=== PATIENT | female | born 1950 | race Caucasian/White ===

== ENCOUNTER → 2018-01-29 | Outpatient (CLI) | payer MEDICARE ==
[~2018-01-29] MED LIST: ASPIR-LOW81 MG; ASPIR-TRIN325 MG PO; KLOR-CON M2020 ME1 PO; LOPRESSOR25 MG PO; METOPROLOL TART50 M1 PO; NKHM; TORSEMIDE20 MG PO; XARE20MG PO
== END | disposition home or self-care (01) ==
LOC: RAD 18:40
DX: J90 Pleural effusion, not elsewhere classified (principal); K63.89 Other specified diseases of intestine

== ENCOUNTER 2018-01-30 08:54 | Inpatient (IN) | payer MEDICARE ==
[2018-01-30] VITALS (11 sets, daily range): BP systolic 118–159; BP diastolic 70–98
[~2018-01-30] VITALS: Ht 170.1 cm; Wt 80.3 kg
--- NOTE | ~2018-01-30 | CON ---
[place], [place] REPORT OF CONSULTATION NAME: PHAM THOMAS UNIT #: [id number] ROOM: 404 DOCTOR: REBEKAH ROA MD BIRTHDATE: [birth year] DOS: 01/30/2018 GASTROENDOSCOPIC REPORT HISTORY OF PRESENT ILLNESS: This is a 67-year-old patient who has presented with a chief complaint of bloated, gassy and was suspected to initially have also pneumonia; however, this was verified and there is no pneumonia on board. X-rays of the abdomen and CT scan were done with suggestion of volvulus of sigmoid colon with history of previous volvulus of colon was of concern. I have been asked for assessment for decompression colonoscopically. Chest x-ray was obtained. Even on chest x-ray, there is markedly distended colon, highly concerning colonic obstruction and sigmoid volvulus in the past, left pleural effusion, bibasilar subsegmental atelectasis noticed. CBC: White blood cell was 6, H and H of 11 and 34, platelet 220. Comprehensive metabolic panel with BUN and creatinine within normal limit. Potassium of 2.4 was addressed with 20 mEq of KCl IV and 40 mEq of KCl p.o. earlier today. Liver function tests normal. CT scan of the abdomen again in detail reassessed compatible with the previous readings on x-ray. PAST MEDICAL HISTORY: Peripheral edema, hypertension. SOCIAL HISTORY: Nonsmoker, nonalcohol consumer. FAMILY HISTORY: Noncontributory. ALLERGIES: To no medications. MEDICATIONS AT HOME: Metoprolol, aspirin and vitamin D. REVIEW OF SYSTEMS: HEENT: Denies double vision, blurred vision. RESPIRATORY: Denies acute shortness of breath. CARDIOVASCULAR: Denies acute chest pain. DIGESTIVE SYSTEM: Bloated, gassy. No hematemesis, no hematochezia. PHYSICAL EXAMINATION: GENERAL: Nontoxic patient, comfortable. HEENT: Head: Normocephalic, nontraumatic. Mouth and buccal mucosa benign. Edentulous. NECK: Supple, no thyromegaly, no cervical lymphadenopathy. CHEST: Symmetric anatomy. No wheezes. Rhonchi anteroposteriorly in the upper lung was noted. Few crackles at the base. HEART: Normal sinus rhythm, no gallop, no murmur. ABDOMEN: Soft. No hepato-organomegaly. Bloated, essentially large, obese. Bowel sounds are low. EXTREMITIES: There is 2+ edema bilaterally and no cyanosis. NEUROLOGIC: Alert, oriented to time, place, person. Sensory and motor intact. Cranial nerves 2-12 intact. IMPRESSION: Volvulus of sigmoid colon, distention of colon as a result, [place], [place] REPORT OF CONSULTATION NAME: PHAM THOMAS UNIT #: [id number] ROOM: 404 DOCTOR: REBEKAH ROA MD BIRTHDATE: [birth year] hypokalemia, status post substitution, old history of atrial fibrillation, systemic hypertension. PLAN AND DISCUSSION: We are going to organize a colonoscopy and volvulus reversal today if possible and clinical reassessment. Lower extremity DVTs assessment has been done. No evidence of DVT in bilateral lower extremities. Thank you very much indeed. REBEKAH ROA MD CM:CONSTR:REPORT OF CONSULTATION 1739 01/31/18 0326 interface
--- NOTE | ~2018-01-30 | PR ---
[place], [place] PROGRESS NOTE [id number] UNIT #: [id number] ROOM: 404 DOCTOR: ANH RAMOS MD BIRTHDATE: [birth year] DOS: 02/01/2018 SUBJECTIVE: The patient was seen at her bedside today, 02/01/2018, for followup of her paroxysmal atrial fibrillation. She is a 67-year-old woman who presented to the hospital on 01/30/2018 with abdominal discomfort. Her CAT scan of the abdomen suggested a volvulus. She did undergo colonoscopic decompression and now feels better. Her diet is being advanced. On admission, she was noted to be in atrial fibrillation with a rapid ventricular response. She has had paroxysmal atrial fibrillation in the past, but was not anticoagulated previously. Since she has been hospitalized, we have started her on metoprolol for rate control and have her on a heparin drip. Once the decision has been made whether or not she will require surgery, we can change her to a direct oral anticoagulant. PHYSICAL EXAMINATION: GENERAL: She is well-nourished white female who is awake, alert and oriented. She is not in any distress. VITAL SIGNS: Pulse is 88 and irregularly irregular, blood pressure is 129/77. She is afebrile. NECK: Supple. She has no jugular distention. Carotids are full. LUNGS: Respirations are unlabored. Her chest is clear. HEART: Has an irregularly irregular rhythm. Heart rate varies from the high 80s to the low 100s. She has no murmurs, rubs or gallops. ABDOMEN: Soft and normally active without masses, organomegaly or bruits. EXTREMITIES: Showed 1+ edema bilaterally. She was given diuretic overnight and is slightly in negative fluid balance compared to yesterday. IMPRESSION: 1. Colonic obstruction due to possible volvulus, improving since the patient did undergo a colonoscopic decompression. 2. Paroxysmal atrial fibrillation. 3. Ankle edema, most likely due to diastolic dysfunction from atrial fibrillation. 4. Essential hypertension. PLAN: I will diurese the patient further today. Hopefully, as we control her heart rate, her diastolic dysfunction will improve and she will not require long-term diuretics. Once the decision has been made regarding her surgical future, we can switch her from heparin to a direct oral anticoagulant. We will continue to follow her with her other physicians and I thank the hospitalist doctors for asking our advice regarding her care. [place], [place] PROGRESS NOTE NAME: PHAM THOMAS UNIT #: [id number] ROOM: 404 DOCTOR: ANH RAMOS MD BIRTHDATE: [birth year] ANH RAMOS MD CM:PNTRANS [id number] ANH RAMOS MD 02/01/182010 interface
--- NOTE | ~2018-01-30 | PR ---
[place], [place] PROGRESS NOTE NAME: PHAM THOMAS UNIT #: [id number] ROOM: 404 DOCTOR: CRISPIN CARREONREBEKAH BIRTHDATE: [birth year] DOS: 02/01/2018 SUBJECTIVE: The patient has presented with extreme distention of the bowel, large bowel and small bowel, with suspected volvulus of sigmoid colon. She underwent colonoscopic evaluation and undoing of the volvulus. She has large volume of stool in the colon and extreme dilation of colon. She was hypokalemic and 40 mEq of KCl today has been given p.o.; however, she is still hypokalemic. I am going to give her another 20 mEq this evening. She should be kept above 4 with her potassium supplementation as well as keeping her magnesium at normal and phosphorus level at the normal level. She has been able to consume solid food today without any adverse effect of nausea, vomiting, abdominal pain, or emesis. PAST MEDICAL HISTORY: Hypertension and peripheral edema. SOCIAL HISTORY: Nonsmoker, nonalcohol consumer. REVIEW OF SYSTEMS: Today: HEENT: Denies double vision, blurred vision. RESPIRATORY: Denies shortness of breath. CARDIOVASCULAR: Denies chest pain. DIGESTIVE SYSTEM: Able to eat solid food and having a bowel movement. PHYSICAL EXAMINATION: VITAL SIGNS: Stable. HEENT: Head normocephalic, nontraumatic. Mouth and buccal mucosa benign. NECK: Supple, no thyromegaly, no cervical lymphadenopathy. CHEST: Symmetric anatomy, equal expansion. HEART: Appears to be irregular, suspected for atrial fibrillation. ABDOMEN: Soft, not distended, not bloated. Bowel sounds present in all quadrants. No rebound tenderness. EXTREMITIES: 1+ edema is still present. NEUROLOGIC: Alert, oriented to time, place, person. IMPRESSION: Volvulus of the colon, status post colonoscopy decompression and volvulus rotation, hypokalemia that is going to be addressed, and retained stool. PLAN AND DISCUSSION: We are going to give her 2 doses of MiraLax tonight to ensure a empty colon tomorrow. I encouraged the patient to ambulate around. Solid food would be the continuation of the diet and otherwise as dictated in consultation report. Labs reviewed and records reviewed. [place], [place] PROGRESS NOTE NAME: PHAM THOMAS UNIT #: [id number] ROOM: 404 DOCTOR: CRISPIN CARREON,REBEKAH BIRTHDATE: [birth year] REBEKAH ROA MD CM:PNNALLELY [phone] REBEKAH ROA MD 02/02/18127 interface
--- NOTE | ~2018-01-30 | PR ---
[place], [place] PROGRESS NOTE NAME: PHAM THOMAS UNIT #: [id number] ROOM: 404 DOCTOR: ANH RAMOS MD BIRTHDATE: [birth year] DOS: 01/31/2018 SUBJECTIVE: The patient was seen at her bedside today, 01/31/2018, with multiple family members in attendance. Yesterday afternoon, she did undergo a colonoscopy with decompression of a possible volvulus. She feels better today and states that she is breathing better. Her abdomen is still distended, however. She remains in atrial fibrillation and occasionally does have a rapid ventricular response. We are adjusting her metoprolol dose to see if we cannot control that with oral medications. In addition, she is on a heparin drip for stroke prophylaxis. Once we are sure that no surgical options are being explored. We will switch her from the heparin to an oral anticoagulant, preferably one of the direct oral anticoagulants. PHYSICAL EXAMINATION: VITAL SIGNS: Her pulse is about 110 and irregularly irregular, blood pressure is 132/95. She is afebrile. NECK: Supple. She has no jugular distention. Carotids are full. LUNGS: Respirations are unlabored. Her chest is clear. HEART: Has an irregularly irregular rapid rhythm without murmurs or gallops. ABDOMEN: Distended, but soft and normally active. EXTREMITIES: Show 1+ edema bilaterally. IMPRESSION: 1. Colonic obstruction, improving. 2. Paroxysmal atrial fibrillation. 3. Ankle edema, most likely due to diastolic dysfunction from her atrial fibrillation. 4. Essential hypertension. PLAN: We have increased her metoprolol. I will give her a few doses of furosemide intravenously to try to improve her fluid balance. We will continue to observe her laboratory studies and vital signs as we do so. Once we are sure that she has not going to undergo been surgery for her colonic obstruction, we will switch her to an oral anticoagulant. I thank the hospitalist physicians for asking our advice regarding her care. [place], [place] PROGRESS NOTE NAME: PHAM THOMAS UNIT #: [id number] ROOM: 404 DOCTOR: ANH RAMOS MD BIRTHDATE: [birth year] ANH RAMOS MD CM:PNTRANS [id number] ANH RAMOS MD 01/31/18 1838 interface
--- NOTE | ~2018-01-30 | WRIGHTHP ---
[place], [place] PATIENT HISTORY AND PHYSICAL EXAM [id number] UNIT #: [id number] ROOM: 404 DOCTOR: ANH RAMOS MD BIRTHDATE: [birth year] DOS: 01/30/2018 CHIEF COMPLAINT: Dyspnea, atrial fibrillation, abnormal echocardiogram. The patient is being admitted for transesophageal echocardiogram as outpatient. HISTORY OF PRESENT ILLNESS: The patient is a 67-year-old woman who initially presented to the emergency department on 01/30/2018 with dyspnea. She was seen in her primary physician's office and was felt to have possible pneumonia; however, she did have a distended abdomen and a CT of the abdomen and pelvis showed findings consistent with a sigmoid volvulus. The patient had had a history of this several years previously. An electrocardiogram was obtained in the emergency room, which showed atrial fibrillation. Review of her records showed that she had been previously hospitalized in June 2012 for new onset of atrial fibrillation and volvulus, which was treated at that time with a decompressive colonoscopy. An echo showed moderate aortic insufficiency with mild right ventricular dilatation and dysfunction, moderate to severe mitral insufficiency, moderate tricuspid insufficiency and biatrial enlargement. She converted to sinus rhythm prior to that discharge and was sent home on aspirin, metoprolol, but as far as I can tell, she was not followed afterwards. She came into the hospital on this occasion again with atrial fibrillation and a volvulus. She did undergo a decompressive colonoscopy and improved, but her abdomen remained distended. She remained in atrial fibrillation with a controlled ventricular response. She was anticoagulated and an echocardiogram was done on 02/02/2018. Surprisingly, it was significantly abnormal. It showed normal left ventricular size with abnormal septal motion consistent with right ventricular overload. Overall, left ventricular systolic function was normal with ejection fraction about 55%, but there was Doppler evidence for stage 3 diastolic dysfunction. The right ventricle was moderately dilated and globally hypokinetic, although TAPSE was normal at 18 mm. The left atrium was moderately enlarged. The interatrial septum was not well visualized. The right atrium was severely enlarged. Aortic valve was sclerotic, but opened well. There was trace aortic insufficiency and no significant valvular stenosis. The mitral leaflets were thickened with normal excursion. There was moderate mitral insufficiency, but no mitral valve stenosis. The tricuspid valve appeared normal with moderate to severe tricuspid insufficiency, but no apparent pulmonary hypertension. The etiology of the patient's right ventricular failure is not clear and therefore further assessment with a transesophageal echocardiogram is being considered. PAST MEDICAL HISTORY: Includes: 1. Hypertension. 2. Paroxysmal atrial fibrillation. 3. Sigmoid volvulus in 2011, which required colonoscopic decompression. The patient did not have surgery. 4. Abnormal echocardiogram in 2011 showing moderate mitral insufficiency, moderate aortic insufficiency, mild right ventricular dilation with dysfunction, moderate tricuspid insufficiency and biatrial enlargement. [place], [place] PATIENT HISTORY AND PHYSICAL EXAM NAME: PHAM THOMAS UNIT #: [id number] ROOM: [facility] DOCTOR: ANH RAMOS MD BIRTHDATE: [birth year] 5. Recurrent colonic volvulus with obstruction 01/30/2018 treated with decompressive colonoscopy. 6. Echocardiogram 02/02/2018, normal left ventricular size with ejection fraction 55%, moderate concentric left ventricular hypertrophy, stage 3 diastolic relaxation abnormalities, moderate right ventricular enlargement with mild impairment of right ventricular function, moderate left atrial enlargement with severe right atrial enlargement, aortic sclerosis without stenosis and with trivial aortic insufficiency, thickened mitral leaflets with normal excursion, moderate mitral insufficiency. No obvious mitral stenosis, [id number] tricuspid insufficiency with normal right ventricular systolic pressures. MEDICATIONS: Include Xarelto 20 mg daily, metoprolol tartrate 50 mg twice a day, potassium chloride 20 mEq daily, torsemide 20 mg 2 tablets daily. ALLERGIES: The patient has no history of drug allergies. REVIEW OF SYSTEMS: The patient denies diplopia or loss of vision. She denies lightheadedness or syncope. She denies palpitations, orthopnea or PND. She does have dyspnea with exertion. She denies any chest pain. She denies hemoptysis or hematemesis. She denies nausea or vomiting. She does have chronic abdominal distention. She does have mild peripheral edema. She denies any skin rashes. She denies heat or cold intolerance. She denies polyuria or polydipsia. She denies bleeding from her stools or urine. The remainder of the review of systems is negative except as noted above. SOCIAL HISTORY: The patient does not consume illegal drugs or smoke. PHYSICAL EXAMINATION: GENERAL: The patient is a well-nourished white female, awake, alert and oriented. VITAL SIGNS: Pulse is 90 and irregularly irregular. Blood pressure is 112/70. She is afebrile. HEENT: Normocephalic and atraumatic. Extraocular muscles are intact. Sclerae are clear. Pupils are equal, round and react to light. The oral mucosa is moist. Tongue is midline. NECK: Supple. She has no jugular distention. She does have hepatojugular reflux. Carotids are full. LUNGS: Respirations are unlabored. Her chest is clear. She has decreased breath sounds at the bases. CARDIOVASCULAR: Heart has an irregularly irregular rhythm. Heart rate varies from 80s to 100s. No murmurs or gallops are heard. ABDOMEN: Distended without masses, organomegaly or bruits. EXTREMITIES: Showed trace edema bilaterally. IMPRESSIONS: 1. Atrial fibrillation, which appears to be permanent at this time. 2. Abnormal echocardiogram suggesting right heart failure and possible valvular heart disease. 3. Recurrent colonic volvulus with obstruction. 4. Chronic diastolic heart failure. [place], [place] PATIENT HISTORY AND PHYSICAL EXAM NAME: PHAM THOMAS UNIT #: [id number] ROOM: [facility] DOCTOR: ANH RAMOS MD BIRTHDATE: [birth year] PLAN: The patient will be brought in as an outpatient for transesophageal echocardiography. Further recommendations will depend upon the results of her anatomic assessment. She may require referral for valve repair or replacement. The patient was told of the risks of transesophageal echocardiography including anesthesia reactions, sore throat, gagging, vomiting, bleeding, etc. Despite these risks, she agrees to proceed. ANH RAMOS MD CM:HISPHYS:PATIENT HISTORY AND PHYSICAL EXAMINATION 1213 1236 ANH RAMOS MD 02/05/18 1235 interface
--- NOTE | ~2018-01-30 | O ---
[place], [place] OPERATIVE NOTE NAME: PHAM THOMAS UNIT #: [id number] ROOM: 404 DOCTOR: REBEKAH ROA MD BIRTHDATE: [birth year] DOS: 01/30/2018 INDICATIONS: The patient is a 67-year-old patient who has presented with chief complaint of abdominal pain, CT scan of the abdomen, volvulus of the colon, distention of the colon. The patient was brought to the operating room for definitive evaluation and decompression. PROCEDURE: Today's procedure part of investigation is colonoscopy. PREMEDICATION: Propofol. SCOPE: Olympus forward-viewing colonoscope 10L video. REPORT: After putting the patient in left lateral position and application of lubricant to rectal pouch, the scope was introduced and under careful observation passed through the columns of the stools present in the colon above volvulus and distention of the colon above the volvulus was noticed. Decompression was undertaken multiple times. This maneuver was redone to assure a straightening of the left colon and reduction of the volvulus in sigmoid colon. The patient was extubated after air was suctioned out. The patient tolerated the procedure well. IMPRESSION: Volvulus sigmoid colon, colonic decompression. PLAN AND DISCUSSION: Understanding this patient has no colonic prep, the procedure had to be done carefully and postoperatively abdomen was examined much softer and there was no distention and we have to await tomorrow's reevaluation. She is going to be given 10 mg of Reglan to have continuation of motility in the colon to overcome possibility of ____. Also, potassium has been supplemented through IV and p.o. and we will observe overnight. Tomorrow KUB of the abdomen and clinical reassessment. The patient is going to be encouraged to ambulate. REBEKAH ROA MD CM:OPRECORD:OPERATIVE NOTE 09 30 REBEKAH ROA MD 01/30/181930 interface
[~2018-01-30 08:54] MED LIST changes: -KLOR-CON M2020 ME1 PO; -METOPROLOL TART50 M1 PO; -TORSEMIDE20 MG PO; -XARE20MG PO
[2018-01-30 10:08] LABS: BASO # 0.1 10*3/uL (0.0-0.1); BASO % 0.8 % (0.0-1.0); EOS # 0.1 10*3/uL (0.0-0.4); EOS % 0.8 % (1.0-4.0); LYMPH # 1.5 10*3/uL (1.3-4.4); LYMPH % 23.5 % (27.0-41.0); MEAN CELL VOLUME 83.1 fl (81.0-99.0); MEAN CORPUSCULAR HGB 26.9 pg (27.0-31.0); MEAN CORPUSCULAR HGB CONC 32.4 g/dl (33.0-37.0); MEAN PLATELET VOLUME 10.1 fl (9.6-12.3); MONO # 0.5 10*3/uL (0.1-1.0); MONO % 8.2 % (3.0-9.0); NEUT # 4.2 10*3/uL (2.3-7.9); NEUT % 66.4 % (47.0-73.0); PLATELET COUNT AUTOMATED 220 10*3/uL (130-400); RED BLOOD COUNT 4.09 10*6/uL (4.10-5.10); WHITE BLOOD COUNT 6.3 10*3/uL (4.8-10.8)
[2018-01-30 10:22] LABS: ALBUMIN 2.9 gm/dl (3.1-4.5); ALKALINE PHOSPHATASE 92 U/L (45-117); BUN 9 mg/dl (7-24); CHLORIDE 107 mmol/L (98-107); CREATININE 0.59 mg/dL (0.55-1.02); SGOT/AST 22 IU/L (3-35); SGPT/ALT 14 U/L (12-78); SODIUM 143 mmol/L (136-145); TOTAL PROTEIN 7.7 gm/dL (6.4-8.2)
[2018-01-30 10:26] LABS: POTASSIUM 2.4 mmol/L (3.5-5.1)
[2018-01-30 20:48] LABS: BUN 8 mg/dl (7-24); CHLORIDE 107 mmol/L (98-107); CREATININE 0.55 mg/dL (0.55-1.02); POTASSIUM 2.5 mmol/L (3.5-5.1); SODIUM 143 mmol/L (136-145)
[2018-01-31] VITALS: BP 139/85
[2018-01-31 06:31] LABS: BASO % 0.9 % (0.0-1.0); EOS # 0.1 10*3/uL (0.0-0.4); EOS % 1.1 % (1.0-4.0); HEMATOCRIT 31.7 % (37.0-47.0); HEMOGLOBIN 10.1 g/dl (12.0-16.0); LYMPH # 1.7 10*3/uL (1.3-4.4); LYMPH % 37.7 % (27.0-41.0); MEAN CELL VOLUME 83.9 fl (81.0-99.0); MEAN CORPUSCULAR HGB 26.7 pg (27.0-31.0); MEAN CORPUSCULAR HGB CONC 31.9 g/dl (33.0-37.0); MONO # 0.5 10*3/uL (0.1-1.0); MONO % 10.4 % (3.0-9.0); NEUT # 2.3 10*3/uL (2.3-7.9); NEUT % 49.7 % (47.0-73.0); PLATELET COUNT AUTOMATED 186 10*3/uL (130-400); RED BLOOD COUNT 3.78 10*6/uL (4.10-5.10); RED CELL DISTRI WIDTH 18.4 % (0-14.5); WHITE BLOOD COUNT 4.5 10*3/uL (4.8-10.8)
[2018-01-31 06:43] LABS: INTERNATIONAL NORM RATIO 1.3 (2.0-3.5)
[2018-01-31 06:46] LABS: ALBUMIN 2.5 gm/dl (3.1-4.5); ALKALINE PHOSPHATASE 79 U/L (45-117); BUN 7 mg/dl (7-24); CHLORIDE 108 mmol/L (98-107); CHOLESTEROL 121 mg/dL (<200); CREATININE 0.48 mg/dL (0.55-1.02); FREE T4 1.22 ng/dl (0.76-1.46); HDL CHOLESTEROL 19 mg/dl (40-60); LDL CHOLESTEROL 85 mg/dL (9-159); PHOSPHOROUS 3.7 mg/dL (2.5-4.9); POTASSIUM 2.9 mmol/L (3.5-5.1); SGOT/AST 20 IU/L (3-35); SGPT/ALT 11 U/L (12-78); SODIUM 143 mmol/L (136-145); TOTAL PROTEIN 6.6 gm/dL (6.4-8.2); TRIGLYCERIDES 87 mg/dl (<150); VLDL CHOLESTEROL 17 mg/dL (6-40)
[2018-01-31 08:00] VITALS: BP 140/82
[2018-01-31 08:09] LABS: VITAMIN D, 25-HYDROXY 79.2 ng/mL (30-100)
[2018-01-31 12:00] VITALS: BP 138/98
[2018-01-31 16:00] VITALS: BP 132/95
[2018-01-31 20:00] VITALS: BP 127/91
[2018-02-01] VITALS: BP 144/92
[2018-02-01 06:19] LABS: BASO # 0.1 10*3/uL (0.0-0.1); BASO % 0.8 % (0.0-1.0); EOS # 0.1 10*3/uL (0.0-0.4); EOS % 0.9 % (1.0-4.0); HEMATOCRIT 36.1 % (37.0-47.0); HEMOGLOBIN 11.5 g/dl (12.0-16.0); LYMPH # 3.2 10*3/uL (1.3-4.4); LYMPH % 48.2 % (27.0-41.0); MEAN CELL VOLUME 84.5 fl (81.0-99.0); MEAN CORPUSCULAR HGB 26.9 pg (27.0-31.0); MEAN CORPUSCULAR HGB CONC 31.9 g/dl (33.0-37.0); MEAN PLATELET VOLUME 10.1 fl (9.6-12.3); MONO # 0.6 10*3/uL (0.1-1.0); MONO % 9.1 % (3.0-9.0); NEUT # 2.7 10*3/uL (2.3-7.9); NEUT % 40.7 % (47.0-73.0); PLATELET COUNT AUTOMATED 234 10*3/uL (130-400); RED BLOOD COUNT 4.27 10*6/uL (4.10-5.10); RED CELL DISTRI WIDTH 18.8 % (0-14.5); WHITE BLOOD COUNT 6.6 10*3/uL (4.8-10.8)
[2018-02-01 06:31] LABS: BUN 6 mg/dl (7-24); CHLORIDE 107 mmol/L (98-107); CREATININE 0.64 mg/dL (0.55-1.02); PHOSPHOROUS 3.5 mg/dL (2.5-4.9); SODIUM 142 mmol/L (136-145)
[2018-02-01 08:00] VITALS: BP 136/92
[2018-02-01 12:00] VITALS: BP 129/77
[2018-02-01 16:00] VITALS: BP 119/70
[2018-02-01 20:00] VITALS: BP 127/84
[2018-02-02] VITALS: BP 135/86
[2018-02-02 06:52] LABS: BASO # 0.1 10*3/uL (0.0-0.1); BASO % 0.8 % (0.0-1.0); EOS # 0.1 10*3/uL (0.0-0.4); EOS % 0.8 % (1.0-4.0); HEMATOCRIT 35.1 % (37.0-47.0); LYMPH # 2.6 10*3/uL (1.3-4.4); LYMPH % 44.3 % (27.0-41.0); MEAN CELL VOLUME 84.6 fl (81.0-99.0); MEAN CORPUSCULAR HGB 26.5 pg (27.0-31.0); MEAN CORPUSCULAR HGB CONC 31.3 g/dl (33.0-37.0); MONO # 0.6 10*3/uL (0.1-1.0); MONO % 9.5 % (3.0-9.0); NEUT # 2.6 10*3/uL (2.3-7.9); NEUT % 44.4 % (47.0-73.0); PLATELET COUNT AUTOMATED 237 10*3/uL (130-400); RED BLOOD COUNT 4.15 10*6/uL (4.10-5.10); RED CELL DISTRI WIDTH 18.9 % (0-14.5); WHITE BLOOD COUNT 5.9 10*3/uL (4.8-10.8)
[2018-02-02 07:17] LABS: BUN 8 mg/dl (7-24); CHLORIDE 104 mmol/L (98-107); CREATININE 0.56 mg/dL (0.55-1.02); PHOSPHOROUS 3.5 mg/dL (2.5-4.9); POTASSIUM 3.1 mmol/L (3.5-5.1); SODIUM 143 mmol/L (136-145)
[2018-02-02 08:00] VITALS: BP 115/75
[2018-02-02 12:00] VITALS: BP 113/75
[2018-02-02] MEDS ORDERED: KLOR-CON M2020 ME1 PO (14:06)
[2018-02-02] MEDS ORDERED: METOPROLOL TART50 M1 PO (14:06)
[2018-02-02] MEDS ORDERED: TORSEMIDE20 MG PO (14:06)
[2018-02-02] MEDS ORDERED: XARE20MG PO (14:06)
== END 2018-02-02 16:30 | disposition home or self-care (01) | DRG 345 ==
LOC: ED 08:54 → EDHOLD 14:47 → 4E 14:47
PROVIDERS: Family Medicine; Internal Medicine Nephrology; Student in an Organized Health Care Education/Training Program
PROC: 0D9N8ZZ Drainage of Sigmoid Colon, Via Natural or Artificial Opening Endoscopic (ICD-10-PCS; principal; 2018-01-30)
DX: K56.2 Volvulus (principal); E44.0 Moderate protein-calorie malnutrition; I48.0 Paroxysmal atrial fibrillation; R65.10 Systemic inflammatory response syndrome (SIRS) of non-infectious origin without acute organ dysfunction; I08.1 Rheumatic disorders of both mitral and tricuspid valves; D64.9 Anemia, unspecified; D72.810 Lymphocytopenia; E66.3 Overweight; E87.6 Hypokalemia; I10 Essential (primary) hypertension; K63.89 Other specified diseases of intestine; Z79.82 Long term (current) use of aspirin; Z79.899 Other long term (current) drug therapy; Z80.8 Family history of malignant neoplasm of other organs or systems; Z68.27 Body mass index [BMI] 27.0-27.9, adult

== ENCOUNTER → 2018-02-06 | Day surgery (SDC) | payer MEDICARE ==
[~2018-02-06] VITALS: Ht 170.1 cm
[~2018-02-06] MED LIST changes: +KLOR-CON M2020 ME1 PO; +METOPROLOL TART50 M1 PO; +TORSEMIDE20 MG PO; +XARE20MG PO
--- NOTE | ~2018-02-06 | O ---
[place], [place] OPERATIVE NOTE NAME: PHAM THOMAS UNIT #: [id number] ROOM: DOCTOR: ANH RAMOS MD BIRTHDATE: [birth year] DOS: 02/06/2018 TRANSESOPHAGEAL ECHOCARDIOGRAM INDICATIONS: Permanent atrial fibrillation, right heart failure. PROCEDURE IN DETAIL: Informed consent was obtained from the patient. She was brought to the operating suite in the fasting state. She was anesthetized by anesthesia staff and appropriate monitoring was performed. The transesophageal transducer was introduced through her mouth to the level of her stomach without difficulty. Imaging was obtained in the standard fashion. Echocardiographic contrast was obtained by 10 mL bolus injection of agitated saline through a peripheral vein. When all imaging was completed, the transducer was removed. The patient had stable vital signs throughout and no immediate complications were noted. FINDINGS: Please see the formal echocardiographic report done at the echo workstation. Salient findings include: 1. Marked biatrial enlargement. 2. Right ventricular enlargement. 3. Sddggugl-ad-qgkyuz tricuspid insufficiency with normal right ventricular systolic pressures. 4. Small patent foramen ovale with bidirectional shunting documented by Doppler and saline echo contrast. 5. Moderate mitral insufficiency, which is central narrow jet. This did not reflux into the pulmonary veins. 6. Slight thickening of the mitral leaflets without stenosis. 7. Aortic sclerosis without stenosis and with trivial aortic insufficiency. The patient tolerated the procedure well. We will continue to treat her as per cardiomyopathy with rate control and guideline-directed medical therapy. For now, we will increase her metoprolol from 50 mg b.i.d. to 75 mg b.i.d. She will continue Xarelto 20 mg per day, potassium 20 mEq per day and torsemide 40 mg per day. [place], [place] OPERATIVE NOTE NAME: PHAM THOMAS UNIT #: [id number] ROOM: DOCTOR: ANH RAMOS MD BIRTHDATE: [birth year] ANH RAMOS MD CM:OPRECORD:OPERATIVE NOTE 1350 1548 ANH RAMOS MD 02/06/18 0776 interface
[2018-02-06 12:20] VITALS: BP 154/94
[2018-02-06 13:10] VITALS: BP 80/44
[2018-02-06 13:25] VITALS: BP 97/53
[2018-02-06 13:40] VITALS: BP 109/66
== END | disposition home or self-care (01) ==
LOC: SDC 02-04 08:00
DX: I48.2 Chronic atrial fibrillation (principal); I08.3 Combined rheumatic disorders of mitral, aortic and tricuspid valves; I11.0 Hypertensive heart disease with heart failure; I25.2 Old myocardial infarction; I50.33 Acute on chronic diastolic (congestive) heart failure; Z87.19 Personal history of other diseases of the digestive system; Z98.890 Other specified postprocedural states; Z79.899 Other long term (current) drug therapy; Z85.41 Personal history of malignant neoplasm of cervix uteri

== ENCOUNTER → 2018-03-13 | Outpatient (CLI) | payer MEDICARE | END | disposition home or self-care (01) | LOC: US 03-12 16:00 | DX: R94.6 Abnormal results of thyroid function studies (principal); R94.5 Abnormal results of liver function studies ==

== ENCOUNTER → 2018-08-05 | Outpatient (CLI) | payer MEDICARE ==
[2018-08-05 10:57] LABS: BUN 20 mg/dl (7-24); CHLORIDE 106 mmol/L (98-107); POTASSIUM 3.7 mmol/L (3.5-5.1); SODIUM 139 mmol/L (136-145)
[2018-08-05 11:02] LABS: FREE T4 1.19 ng/dl (0.76-1.46)
== END | disposition home or self-care (01) ==
LOC: LAB 10:05
PROVIDERS: Internal Medicine
DX: E03.9 Hypothyroidism, unspecified (principal); E55.9 Vitamin D deficiency, unspecified; E87.6 Hypokalemia

== ENCOUNTER → 2018-10-28 | Outpatient (CLI) | payer MEDICARE ==
[2018-10-28 09:34] LABS: BUN 20 mg/dl (7-24); CHLORIDE 104 mmol/L (98-107); CREATININE 0.95 mg/dL (0.55-1.02); POTASSIUM 3.5 mmol/L (3.5-5.1); SODIUM 140 mmol/L (136-145)
== END | disposition home or self-care (01) ==
LOC: LAB 08:35
PROVIDERS: Internal Medicine
DX: E03.9 Hypothyroidism, unspecified (principal); E55.9 Vitamin D deficiency, unspecified; E87.6 Hypokalemia

== ENCOUNTER → 2019-02-24 | Outpatient (CLI) | payer MEDICARE ==
[2019-02-24 09:15] LABS: CHLORIDE 105 mmol/L (98-107); POTASSIUM 3.5 mmol/L (3.5-5.1); SODIUM 140 mmol/L (136-145)
[2019-02-24 09:30] LABS: ALBUMIN 3.8 gm/dl (3.1-4.5); BUN 21 mg/dl (7-24); CREATININE 0.88 mg/dL (0.55-1.02); FREE T4 1.64 ng/dl (0.76-1.46)
[2019-02-25 08:06] LABS: DHEA SULFATE 102.7 ug/dL (20.4-186.6)
== END | disposition home or self-care (01) ==
LOC: LAB 08:15
PROVIDERS: Internal Medicine
DX: E03.9 Hypothyroidism, unspecified (principal); E55.9 Vitamin D deficiency, unspecified; L65.9 Nonscarring hair loss, unspecified; E87.6 Hypokalemia

== ENCOUNTER → 2019-07-12 | Outpatient (CLI) | payer MEDICARE ==
[2019-07-12 12:38] LABS: BUN 21 mg/dl (7-24); CHLORIDE 104 mmol/L (98-107); CREATININE 0.86 mg/dL (0.55-1.02); POTASSIUM 3.4 mmol/L (3.5-5.1); SODIUM 137 mmol/L (136-145)
[2019-07-12 12:46] LABS: FREE T4 1.78 ng/dl (0.76-1.46)
== END | disposition home or self-care (01) ==
LOC: LAB 11:19
PROVIDERS: Internal Medicine
DX: E03.9 Hypothyroidism, unspecified (principal); E87.6 Hypokalemia; E55.9 Vitamin D deficiency, unspecified

== ENCOUNTER → 2019-11-15 | Outpatient (CLI) | payer MEDICARE ==
[2019-11-15 10:37] LABS: BUN 14 mg/dl (7-24); CHLORIDE 106 mmol/L (98-107); CREATININE 0.87 mg/dL (0.55-1.02); POTASSIUM 4.1 mmol/L (3.5-5.1); SODIUM 137 mmol/L (136-145)
[2019-11-15 10:45] LABS: FREE T4 1.23 ng/dl (0.76-1.46)
== END | disposition home or self-care (01) ==
LOC: LAB 09:03
PROVIDERS: Internal Medicine
DX: E78.6 Lipoprotein deficiency (principal); L65.9 Nonscarring hair loss, unspecified; E03.9 Hypothyroidism, unspecified; E55.9 Vitamin D deficiency, unspecified

== ENCOUNTER → 2020-03-01 | Outpatient (CLI) | payer MEDICARE ==
[2020-03-01 10:12] LABS: CHLORIDE 110 mmol/L (98-107); POTASSIUM 3.5 mmol/L (3.5-5.1); SODIUM 141 mmol/L (136-145)
[2020-03-01 10:30] LABS: BUN 13 mg/dl (7-24); CREATININE 0.77 mg/dL (0.55-1.02); FREE T4 1.57 ng/dl (0.76-1.46); IRON 97 ug/dL (50-170); TOTAL IRON BINDING CAPACITY 314 ug/dl (250-450)
== END | disposition home or self-care (01) ==
LOC: LAB 08:09
PROVIDERS: Internal Medicine
DX: E55.9 Vitamin D deficiency, unspecified (principal); E87.6 Hypokalemia; E03.9 Hypothyroidism, unspecified; L65.9 Nonscarring hair loss, unspecified

== ENCOUNTER → 2020-04-13 | Outpatient (CLI) | payer MEDICARE ==
[2020-04-13 11:09] LABS: HEMATOCRIT 40.8 % (37.0-47.0); MEAN CELL VOLUME 92.3 fl (81.0-99.0); MEAN CORPUSCULAR HGB CONC 31.4 g/dl (33.0-37.0); MEAN PLATELET VOLUME 11.2 fl (9.6-12.3); RED BLOOD COUNT 4.42 10*6/uL (4.10-5.10); RED CELL DISTRI WIDTH 15.2 % (0-14.5); WHITE BLOOD COUNT 7.3 10*3/uL (4.8-10.8)
[2020-04-13 11:36] LABS: ALBUMIN 3.6 gm/dl (3.1-4.5); ALKALINE PHOSPHATASE 88 U/L (45-117); BUN 18 mg/dl (7-24); CHLORIDE 108 mmol/L (98-107); CHOLESTEROL 138 mg/dL (<200); CREATININE 0.76 mg/dL (0.55-1.02); HDL CHOLESTEROL 29 mg/dl (40-60); LDL CHOLESTEROL 84 mg/dL (9-159); POTASSIUM 3.8 mmol/L (3.5-5.1); SGOT/AST 25 IU/L (3-35); SGPT/ALT 29 U/L (12-78); SODIUM 139 mmol/L (136-145); TOTAL PROTEIN 7.4 gm/dL (6.4-8.2); TRIGLYCERIDES 124 mg/dl (<150); VLDL CHOLESTEROL 25 mg/dL (6-40)
== END | disposition home or self-care (01) ==
LOC: LAB 10:26
PROVIDERS: Internal Medicine
DX: I10 Essential (primary) hypertension (principal); E03.9 Hypothyroidism, unspecified; E78.5 Hyperlipidemia, unspecified; R73.03 Prediabetes

== ENCOUNTER → 2020-08-14 | Outpatient (CLI) | payer MEDICARE ==
[2020-08-14 11:12] LABS: POTASSIUM 4.6 mmol/L (3.5-5.1)
[2020-08-14 11:18] LABS: FREE T4 1.3 ng/dl (0.76-1.46); THYROID STIM HORMONE (HS) 2.59 uIU/ml (0.358-4.75)
== END | disposition home or self-care (01) ==
LOC: LAB 10:13
PROVIDERS: ATTEND Internal Medicine
DX: E87.6 Hypokalemia (principal); E03.9 Hypothyroidism, unspecified; E55.9 Vitamin D deficiency, unspecified

== ENCOUNTER → 2021-01-12 | Outpatient (CLI) | payer OTHER, MEDICAID ==
[2021-01-12 11:49] LABS: ALBUMIN 3.9 gm/dl (3.1-4.5); BUN 17 mg/dl (7-24); CHLORIDE 106 mmol/L (98-107); CREATININE 0.79 mg/dL (0.55-1.02); FREE T4 1.32 ng/dl (0.76-1.46); POTASSIUM 4.1 mmol/L (3.5-5.1); SODIUM 139 mmol/L (136-145)
== END | disposition home or self-care (01) ==
LOC: LAB 10:51
PROVIDERS: ATTEND Internal Medicine
DX: E03.9 Hypothyroidism, unspecified (principal); E55.9 Vitamin D deficiency, unspecified; L65.9 Nonscarring hair loss, unspecified

== ENCOUNTER → 2021-06-05 | Outpatient (CLI) | payer OTHER, MEDICAID ==
[2021-06-05 10:35] LABS: ALBUMIN 3.9 gm/dl (3.1-4.5); BUN 17 mg/dl (7-24); CHLORIDE 110 mmol/L (98-107); CREATININE 0.69 mg/dL (0.55-1.02); POTASSIUM 3.9 mmol/L (3.5-5.1); SODIUM 139 mmol/L (136-145)
[2021-06-05 10:40] LABS: FREE T4 1.29 ng/dl (0.76-1.46)
== END | disposition home or self-care (01) ==
LOC: LAB 09:58
PROVIDERS: ATTEND Internal Medicine
DX: E55.9 Vitamin D deficiency, unspecified (principal); L65.9 Nonscarring hair loss, unspecified; E03.9 Hypothyroidism, unspecified

== ENCOUNTER → 2021-11-05 | Outpatient (CLI) | payer OTHER ==
[2021-11-05 11:42] LABS: BUN 16 mg/dl (7-24); CHLORIDE 107 mmol/L (98-107); POTASSIUM 3.5 mmol/L (3.5-5.1); SODIUM 139 mmol/L (136-145)
[2021-11-05 11:53] LABS: FREE T4 1.27 ng/dl (0.76-1.46)
== END | disposition home or self-care (01) ==
LOC: LAB 10:34
PROVIDERS: ATTEND Internal Medicine
DX: E55.9 Vitamin D deficiency, unspecified (principal); L65.9 Nonscarring hair loss, unspecified; E03.9 Hypothyroidism, unspecified

== ENCOUNTER → 2022-08-07 | Outpatient (CLI) | payer OTHER ==
[2022-08-07 11:35] LABS: BUN 13 mg/dl (7-24); CHLORIDE 106 mmol/L (98-107); CREATININE 0.77 mg/dL (0.55-1.02); FREE T4 1.38 ng/dl (0.76-1.46); SODIUM 139 mmol/L (136-145)
[2022-08-07 11:42] LABS: POTASSIUM 4.9 mmol/L (3.5-5.1)
== END | disposition home or self-care (01) ==
LOC: LAB 10:34
PROVIDERS: ATTEND Internal Medicine
DX: E87.6 Hypokalemia (principal); E55.9 Vitamin D deficiency, unspecified; E03.9 Hypothyroidism, unspecified; L65.9 Nonscarring hair loss, unspecified

== ENCOUNTER → 2023-02-13 | Outpatient (CLI) | payer OTHER ==
[2023-02-13 11:39] LABS: BUN 11 mg/dl (9-23); CHLORIDE 107 mmol/L (98-107); FREE T4 1.23 ng/dl (0.89-1.76); POTASSIUM 3.8 mmol/L (3.4-5.1); THYROID STIM HORMONE (HS) 3.127 uIU/ml (0.550-4.780)
== END | disposition home or self-care (01) ==
LOC: LAB 10:50
PROVIDERS: ATTEND Internal Medicine
DX: E55.9 Vitamin D deficiency, unspecified (principal); L65.9 Nonscarring hair loss, unspecified; E03.9 Hypothyroidism, unspecified; E87.6 Hypokalemia

== ENCOUNTER → 2023-11-04 | Outpatient (CLI) | payer OTHER ==
[2023-11-04 10:21] LABS: BASO % 0.5 % (0.0-1.0); EOS # 0.1 10*3/uL (0.0-0.4); EOS % 1.1 % (1.0-4.0); HEMATOCRIT 40.2 % (37.0-47.0); LYMPH # 1.9 10*3/uL (1.3-4.4); LYMPH % 22.6 % (27.0-41.0); MEAN CELL VOLUME 92.2 fl (81.0-99.0); MEAN CORPUSCULAR HGB 29.6 pg (27.0-31.0); MEAN CORPUSCULAR HGB CONC 32.1 g/dl (33.0-37.0); MEAN PLATELET VOLUME 10.4 fl (9.6-12.3); MONO # 0.6 10*3/uL (0.1-1.0); MONO % 7.1 % (3.0-9.0); NEUT # 5.7 10*3/uL (2.3-7.9); NEUT % 68.5 % (47.0-73.0); PLATELET COUNT AUTOMATED 150 10*3/uL (130-400); RED BLOOD COUNT 4.36 10*6/uL (4.10-5.10); RED CELL DISTRI WIDTH 14.5 % (0-14.5); WHITE BLOOD COUNT 8.3 10*3/uL (4.8-10.8)
[2023-11-04 10:59] LABS: ALKALINE PHOSPHATASE 83 U/L (46-116); BUN 10 mg/dl (9-23); CHLORIDE 106 mmol/L (98-107); CHOLESTEROL 143 mg/dL (<200); FREE T4 1.23 ng/dl (0.89-1.76); LDL CHOLESTEROL 93 mg/dL (9-159); POTASSIUM 3.3 mmol/L (3.4-5.1); SGPT/ALT 17 U/L (5-49); TOTAL PROTEIN 7.2 gm/dL (6.0-8.0); TRIGLYCERIDES 109 mg/dl (<150)
== END ==
LOC: LAB 10:00
PROVIDERS: ATTEND Nurse Practitioner Family
DX: I10 Essential (primary) hypertension (principal); I48.91 Unspecified atrial fibrillation; D64.9 Anemia, unspecified; E03.9 Hypothyroidism, unspecified; E78.5 Hyperlipidemia, unspecified; R73.03 Prediabetes

== ENCOUNTER → 2023-12-29 | Outpatient (CLI) | payer OTHER ==
[2023-12-29 11:34] LABS: BUN 14 mg/dl (9-23); CHLORIDE 103 mmol/L (98-107); FREE T4 1.33 ng/dl (0.89-1.76); POTASSIUM 3.5 mmol/L (3.4-5.1)
== END | disposition home or self-care (01) ==
LOC: LAB 10:00
PROVIDERS: ATTEND Internal Medicine
DX: E87.6 Hypokalemia (principal); E03.9 Hypothyroidism, unspecified; E55.9 Vitamin D deficiency, unspecified

== ENCOUNTER → 2024-05-19 | Outpatient (CLI) | payer OTHER ==
[2024-05-19 11:42] LABS: BUN 6 mg/dl (9-23); CHLORIDE 105 mmol/L (98-107); FREE T4 1.36 ng/dl (0.89-1.76); POTASSIUM 4.1 mmol/L (3.4-5.1)
== END | disposition home or self-care (01) ==
LOC: LAB 10:02
PROVIDERS: ATTEND Internal Medicine
DX: E03.9 Hypothyroidism, unspecified (principal); E55.9 Vitamin D deficiency, unspecified; E87.6 Hypokalemia